=== PATIENT | female | born 1960 | race Caucasian/White ===

== ENCOUNTER 2018-02-15 22:17 | Emergency (ER) | payer OTHER ==
[~2018-02-15] VITALS: Ht 160 cm; Wt 88.0 kg
[~2018-02-15 22:17] MED LIST: CEPH250C2 PO; VIC PO
[2018-02-15] MEDS ORDERED: IBUPROFEN 600MG TABLET PO STA (23:55)
[2018-02-16] MEDS ORDERED: BACITRACIN ZINC OINT UDPKT TOP ONE
[2018-02-16] MEDS ORDERED: LIDOCAINE HCL/PF 1% 10 MG/ML 5ML VIAL IJ ONE
[2018-02-16 00:56] VITALS: BP 142/85
== END 2018-02-16 03:45 | disposition home or self-care (01) ==
LOC: ER 02-16 03:40
DX: L03.032 Cellulitis of left toe (principal); L60.0 Ingrowing nail; Z90.49 Acquired absence of other specified parts of digestive tract; Z98.890 Other specified postprocedural states
CPT/HCPCS: 10060; 82962; 99283; J3490; Z7610

== ENCOUNTER 2021-02-15 12:46 | Emergency (ER) | payer SELFPAY ==
[~2021-02-15] VITALS: Ht 152.4 cm; Wt 84.0 kg
[2021-02-15 14:24] VITALS: BP 123/87
[2021-02-15] MEDS ORDERED: IBUP-2029 PO (14:37)
[2021-02-15] MEDS ORDERED: KETOROLAC 30MG/ML VIAL IM NR (15:00)
== END 2021-02-15 15:05 | disposition home or self-care (01) ==
LOC: ER 12:46
DX: M17.12 Unilateral primary osteoarthritis, left knee (principal)
CPT/HCPCS: 73564; 96372; 99283; J1885